=== PATIENT | female | born 1990 | race American Indian/Alaskan Native ===

== ENCOUNTER 2016-08-13 21:40 | Outpatient (CLI) | payer MEDICAID ==
[~2016-08-13] VITALS: Ht 160 cm; Wt 84.5 kg
[~2016-08-13 21:40] MED LIST: HYDR-3307 PO; PREN1TAB60 PO
[2016-08-13 22:08] VITALS: BP 122/66
== END 2016-08-13 22:10 | disposition home or self-care (01) ==
LOC: LDOP 21:40
PROVIDERS: ATTEND Student in an Organized Health Care Education/Training Program
DX: O26.893 Other specified pregnancy related conditions, third trimester (principal); R10.9 Unspecified abdominal pain; Z3A.38 38 weeks gestation of pregnancy
CPT/HCPCS: 59025; 99211; G0463

== ENCOUNTER 2016-08-18 20:39 | Outpatient (CLI) | payer MEDICAID ==
[2016-08-24] MEDS ORDERED: IBUP-1222 PO (10:25)
[2016-08-24] MEDS ORDERED: OXYC-302 PO (10:25)
[2016-08-24] MEDS ORDERED: DOCU-30 PO (10:26)
[2016-08-24] MEDS ORDERED: FERR324T13 PO (10:27)
== END 2016-08-18 22:20 | disposition home or self-care (01) ==
LOC: LDOP 20:39
PROVIDERS: ATTEND Obstetrics & Gynecology
DX: O26.893 Other specified pregnancy related conditions, third trimester (principal); R10.9 Unspecified abdominal pain; O62.9 Abnormality of forces of labor, unspecified; O99.283 Endocrine, nutritional and metabolic diseases complicating pregnancy, third trimester; E03.9 Hypothyroidism, unspecified; Z3A.39 39 weeks gestation of pregnancy
CPT/HCPCS: 59025; 99211; G0463

== ENCOUNTER 2016-08-21 01:56 | Outpatient (CLI) | payer MEDICAID ==
[~2016-08-21] VITALS: Ht 162.6 cm; Wt 75.9 kg
[2016-08-21 02:45] VITALS: BP 123/66
[2016-08-24] MEDS ORDERED: OXYC-302 PO (10:25)
[2016-08-24] MEDS ORDERED: IBUP-1222 PO (10:25)
[2016-08-24] MEDS ORDERED: DOCU-30 PO (10:26)
[2016-08-24] MEDS ORDERED: FERR324T13 PO (10:27)
== END 2016-08-21 02:45 | disposition home or self-care (01) ==
LOC: LDOP 01:56
PROVIDERS: ATTEND Obstetrics & Gynecology
DX: O09.93 Supervision of high risk pregnancy, unspecified, third trimester (principal); O42.92 Full-term premature rupture of membranes, unspecified as to length of time between rupture and onset of labor; O99.283 Endocrine, nutritional and metabolic diseases complicating pregnancy, third trimester; E03.9 Hypothyroidism, unspecified; Z3A.39 39 weeks gestation of pregnancy; Z87.891 Personal history of nicotine dependence
CPT/HCPCS: 59025; 89060; 99211; G0463; Q0114

== ENCOUNTER 2017-10-29 15:02 | Outpatient (CLI) | payer SELFPAY ==
[~2017-10-29 15:02] MED LIST changes: +DOCU-131 PO; +FERR324T13 PO; +IBUP-1222 PO; +OXYC-302 PO
[2017-10-29 16:08] LABS: MICROSCOPIC INDICATED
[2017-10-29 16:59] LABS: AMPHETAMINE SCREEN, URINE Negative (Negative); BARBITURATE SCREEN, URINE Negative (Negative); BENZODIAZEPINE SCREEN, URINE Negative (Negative); CANNABINOID SCREEN, URINE Negative (Negative); COCAINE SCREEN, URINE Negative (Negative); METHADONE SCREEN, URINE Negative (Negative); OPIATE SCREEN, URINE Negative (Negative)
[2017-10-29 17:18] LABS: BASOPHILS # (AUTO) 0.03 x10^3/uL (0-0.1); BASOPHILS % (AUTO) 0 % (0-1); EOSINOPHILS # (AUTO) 0.04 x10^3/uL (0-0.4); EOSINOPHILS % (AUTO) 1 % (1-7); LYMPHOCYTES # (AUTO) 1.78 x10^3/uL (1-3.4); LYMPHOCYTES % (AUTO) 20 % (22-44); MD NO; MEAN CORPUSCULAR HEMOGLOBIN 23.2 pg (27.0-34.8); MEAN CORPUSCULAR HGB CONC 31.5 g/dL (32.4-35.8); MEAN CORPUSCULAR VOLUME 73.7 fL (80-100); MEAN PLATELET VOLUME 7.7 fL (7.4-10.4); MONOCYTES # (AUTO) 0.33 x10^3/uL (0.2-0.8); MONOCYTES % (AUTO) 4 % (2-9); NEUTROPHILS # (AUTO) 6.64 x10^3/uL (1.8-6.8); NEUTROPHILS % (AUTO) 75 % (42-75); PLATELET COUNT 281 x10^3/uL (130-400); RED BLOOD COUNT 4.08 x10^6/uL (3.82-5.3); RED CELL DISTRIBUTION WIDTH 17.8 % (9.6-15.2)
[2017-10-29 17:31] LABS: ALANINE AMINOTRANSFERASE 13 U/L (12-78); ALBUMIN 2.5 g/dL (3.4-5.0); ANION GAP 8 mmol/L (5-15); CALCIUM 7.5 mg/dL (8.5-10.1); CHLORIDE 108 mmol/L (98-107); CREATININE 0.41 mg/dL (0.55-1.02)
[2017-10-29 17:33] LABS: ALKALINE PHOSPHATASE 141 U/L (45-117); BILIRUBIN,TOTAL 0.6 mg/dL (0.2-1.0); TOTAL PROTEIN 6.4 g/dL (6.4-8.2)
== END 2017-10-29 18:15 | disposition home or self-care (01) ==
LOC: LDOP 15:02
PROVIDERS: ATTEND Obstetrics & Gynecology
DX: O26.899 Other specified pregnancy related conditions, unspecified trimester (principal); R10.9 Unspecified abdominal pain; Z3A.00 Weeks of gestation of pregnancy not specified
CPT/HCPCS: 36415; 59025; 80053; 80307; 81001; 85025; 87086; 99211; G0463

== ENCOUNTER 2017-11-14 14:39 | Outpatient (CLI) | payer MEDICAID ==
[~2017-11-14] VITALS: Ht 160 cm; Wt 77.2 kg
[2017-11-14 14:46] VITALS: BP 106/58
== END 2017-11-14 15:20 | disposition home or self-care (01) ==
LOC: LDOP 14:39
PROVIDERS: ATTEND Obstetrics & Gynecology
DX: O26.893 Other specified pregnancy related conditions, third trimester (principal); R10.9 Unspecified abdominal pain; Z3A.38 38 weeks gestation of pregnancy
CPT/HCPCS: 59025; 99211; G0463

== ENCOUNTER 2017-11-20 19:33 | Outpatient (CLI) | payer MEDICAID ==
[~2017-11-20] VITALS: Ht 160 cm; Wt 83.6 kg
[2017-11-20 19:40] VITALS: BP 114/65
== END 2017-11-20 20:30 | disposition home or self-care (01) ==
LOC: LDOP 19:33
PROVIDERS: ATTEND Obstetrics & Gynecology
DX: O34.219 Maternal care for unspecified type scar from previous cesarean delivery (principal); O26.893 Other specified pregnancy related conditions, third trimester; R10.9 Unspecified abdominal pain; Z3A.39 39 weeks gestation of pregnancy
CPT/HCPCS: 59025; 99211; G0463

== ENCOUNTER 2017-11-28 11:41 | Inpatient (IN) | payer MEDICAID ==
[~2017-11-28] VITALS: Ht 160 cm; Wt 84.0 kg
[2017-11-28] MEDS ORDERED: D5%-LACTATED RINGERS 1,000 ML IV SCH (14:56)
[2017-11-28] MEDS ORDERED: OXYTOCIN 30U/ 0.9% NaCL 500ML 500 ML IV ONE (14:56)
[2017-11-28] MEDS ORDERED: OXYTOCIN 30U/ 0.9% NaCL 500ML 500 ML IV PRN (14:56)
[2017-11-28] MEDS ORDERED: FENTANYL PF 100 MCG/2ML IVPush PRN (15:00)
[2017-11-28] MEDS ORDERED: FENTANYL PF 100 MCG/2ML IV PRN (15:00)
[2017-11-28] MEDS ORDERED: ONDANSETRON 2MG/ML, 2ML IVPush PRN (15:00)
[2017-11-28] MEDS ORDERED: OXYTOCIN 30U/ 0.9% NaCL 500ML 500 ML ONE (15:15)
[2017-11-28] MEDS ORDERED: NEWBORN KIT ONE (15:15)
[2017-11-28 15:20] LABS: MEAN CORPUSCULAR HEMOGLOBIN 25.8 pg (27.0-34.8); MEAN CORPUSCULAR VOLUME 80.6 fL (80-100); MEAN PLATELET VOLUME 7.6 fL (7.4-10.4); PLATELET COUNT 304 x10^3/uL (130-400); RED BLOOD COUNT 4.57 x10^6/uL (3.82-5.3); RED CELL DISTRIBUTION WIDTH 31.6 % (9.6-15.2)
[2017-11-28] MEDS: LACTATED RINGERS 1,000 ML IV SCH ×3 (15:34→22:42)
[2017-11-28 15:37] LABS: BASOPHILS # (AUTO) 0.03 x10^3/uL (0-0.1); BASOPHILS % (AUTO) 0 % (0-1); EOSINOPHILS # (AUTO) 0.03 x10^3/uL (0-0.4); EOSINOPHILS % (AUTO) 0 % (1-7); LYMPHOCYTES # (AUTO) 1.49 x10^3/uL (1-3.4); LYMPHOCYTES % (AUTO) 20 % (22-44); MD MORPH REVIEW ONLY; MONOCYTES % (AUTO) 4 % (2-9); NEUTROPHILS # (AUTO) 5.73 x10^3/uL (1.8-6.8); NEUTROPHILS % (AUTO) 76 % (42-75)
[2017-11-28 15:38] LABS: <PLATELET ESTIMATE> ADEQUATE; <PLT MORPHOLOGY> NORMAL PLT MORPH; ANISOCYTOSIS 2+; OVALOCYTES 1+; POLYCHROMASIA 1+
[2017-11-28 15:40] VITALS: BP 105/59
[2017-11-28] MEDS ORDERED: FENTANYL PF 100 MCG/2ML ONE (20:40)
[2017-11-28] MEDS ORDERED: FENTANYL/BUPIV./NS/PF 250 ML EPIDCONT ONE (22:03)
[2017-11-28] MEDS ORDERED: BUPIVACAINE 0.25% ONE (22:03)
[2017-11-28] MEDS ORDERED: FENTANYL/BUPIV./NS/PF 250 ML EPIDCONT SCH (22:29)
[2017-11-28] MEDS ORDERED: LACTATED RINGERS 1,000 ML IVBOLUS PRN (22:30)
[2017-11-29] MEDS ORDERED: EPHEDRINE 50 MG/ML, 1ML ONE (02:02)
[2017-11-29] MEDS: EPHEDRINE 50 MG/ML, 1ML IVPush PRN ×2 (02:05→02:37)
[2017-11-29] MEDS: LACTATED RINGERS 1,000 ML IV SCH (02:20)
[2017-11-29] MEDS ORDERED: IBUPROFEN 600 MG TABLET ONE (05:50)
[2017-11-29] MEDS: IBUPROFEN 600 MG TABLET PO PRN ×3 (05:58→23:03)
[2017-11-29] MEDS ORDERED: DOCUSATE 100 MG CAPSULE PO PRN (06:00)
[2017-11-29] MEDS ORDERED: OXYTOCIN 30U/ 0.9% NaCL 500ML 500 ML ONE (06:00)
[2017-11-29] MEDS ORDERED: BISACODYL 10 MG SUPP PR PRN (06:00)
[2017-11-29] MEDS ORDERED: OXYcodone/APAP 5/325MG TABLET PO PRN ×2 (06:00)
[2017-11-29] MEDS ORDERED: METHYLERGONOVINE 0.2 MG/ML IM PRN (06:00)
[2017-11-29] MEDS ORDERED: GLYCERIN ADULT SUPP PR PRN (06:00)
[2017-11-29] MEDS ORDERED: IBUPROFEN 800 MG TABLET PO PRN (06:00)
[2017-11-29] MEDS ORDERED: MISOPROSTOL 200 MCG TABLET PR PRN (06:00)
[2017-11-29] MEDS ORDERED: ACETAMINOPHEN 325 MG TABLET PO PRN (06:00)
[2017-11-29] MEDS: OXYTOCIN 30U/ 0.9% NaCL 500ML 500 ML IV SCH ×2 (06:13→15:41)
[2017-11-29 08:45] VITALS: BP 94/57
[2017-11-29] MEDS: PRENATAL VIT/IRON/FA 1 EACH TABLET PO SCH (09:00)
[2017-11-29 12:00] VITALS: BP 98/60
[2017-11-29 13:36] LABS: MEAN CORPUSCULAR HEMOGLOBIN 25.7 pg (27.0-34.8); MEAN CORPUSCULAR HGB CONC 31.8 g/dL (32.4-35.8); MEAN CORPUSCULAR VOLUME 80.9 fL (80-100); MEAN PLATELET VOLUME 7.6 fL (7.4-10.4); PLATELET COUNT 248 x10^3/uL (130-400); RED CELL DISTRIBUTION WIDTH 31.8 % (9.6-15.2)
[2017-11-29 14:11] LABS: MD MORPH REVIEW ONLY
[2017-11-29 14:12] LABS: BASOPHILS # (AUTO) 0.08 x10^3/uL (0-0.1); BASOPHILS % (AUTO) 1 % (0-1); EOSINOPHILS # (AUTO) 0.03 x10^3/uL (0-0.4); EOSINOPHILS % (AUTO) 0 % (1-7); LYMPHOCYTES # (AUTO) 1.43 x10^3/uL (1-3.4); LYMPHOCYTES % (AUTO) 13 % (22-44); MONOCYTES # (AUTO) 0.31 x10^3/uL (0.2-0.8); MONOCYTES % (AUTO) 3 % (2-9); NEUTROPHILS # (AUTO) 8.77 x10^3/uL (1.8-6.8); NEUTROPHILS % (AUTO) 83 % (42-75)
[2017-11-29 14:17] LABS: POLYCHROMASIA 1+
[2017-11-29 14:19] LABS: ANISOCYTOSIS 2+
[2017-11-29 14:25] LABS: <PLATELET ESTIMATE> ADEQUATE; <PLT MORPHOLOGY> NORMAL PLT MORPH; OVALOCYTES 1+
[2017-11-29 16:35] VITALS: BP 96/60
[2017-11-29 20:00] VITALS: BP 96/57
[2017-11-30 00:10] VITALS: BP 92/57
[2017-11-30 04:00] VITALS: BP 95/56
[2017-11-30 07:30] VITALS: BP 93/59
[2017-11-30] MEDS: PRENATAL VIT/IRON/FA 1 EACH TABLET PO SCH (07:56)
[2017-11-30] MEDS: IBUPROFEN 600 MG TABLET PO PRN (07:57)
[2017-11-30] MEDS ORDERED: IBUP-1222 PO (08:56)
[2017-11-30] MEDS ORDERED: OXYC-302 PO (08:56)
== END 2017-11-30 11:57 | disposition home or self-care (01) | DRG 775 ==
LOC: LDOP 11:41 → LDIP 14:56 → 2NW 11-29 08:30
PROVIDERS: ADMIT Obstetrics & Gynecology; ATTEND Obstetrics & Gynecology
PROC: 10E0XZZ Delivery of Products of Conception, External Approach (ICD-10-PCS; principal; 2017-11-29)
PROC: 3E0R3BZ Introduction of Anesthetic Agent into Spinal Canal, Percutaneous Approach (ICD-10-PCS; 2017-11-29)
PROC: 00HU33Z Insertion of Infusion Device into Spinal Canal, Percutaneous Approach (ICD-10-PCS; 2017-11-29)
PROC: 0HQ9XZZ Repair Perineum Skin, External Approach (ICD-10-PCS; 2017-11-29)
DX: O62.0 Primary inadequate contractions (principal); O99.52 Diseases of the respiratory system complicating childbirth; D50.9 Iron deficiency anemia, unspecified; J45.909 Unspecified asthma, uncomplicated; Z37.0 Single live birth; Z3A.40 40 weeks gestation of pregnancy; Z80.3 Family history of malignant neoplasm of breast; Z82.3 Family history of stroke; Z83.3 Family history of diabetes mellitus; O71.82 Other specified trauma to perineum and vulva; O99.02 Anemia complicating childbirth
CPT/HCPCS: 36415; 76815; 85025; 86850; 86900; J3010; J2590; J7120

== ENCOUNTER 2018-04-16 11:32 | Day surgery (SDC) | payer MEDICAID ==
[~2018-04-16] VITALS: Ht 160 cm; Wt 73.5 kg
[2018-04-16] MEDS ORDERED: LACTATED RINGERS 1,000 ML IV SCH (12:11)
[2018-04-16 12:25] VITALS: BP 110/69
[2018-04-16] MEDS ORDERED: LIDOCAINE-MPF 1%, 2ML INFIL ONE (12:30)
[2018-04-16] MEDS ORDERED: ONDANSETRON ODT 8 MG PO ONE (12:30)
[2018-04-16] MEDS ORDERED: OXYcodone IR 5MG TABLET PO ONE (12:30)
[2018-04-16] MEDS ORDERED: GABAPENTIN 300 MG CAPSULE PO ONE (12:30)
[2018-04-16] MEDS ORDERED: SCOPOLAMINE PATCH, 1.5MG PATCH.TD72 TD ONE (12:30)
[2018-04-16] MEDS ORDERED: PROPOFOL 50 ML ONE (12:31)
[2018-04-16] MEDS ORDERED: FENTANYL PF 250 MCG/5ML ONE (12:31)
[2018-04-16] MEDS ORDERED: fluoxetine PO (12:40)
[2018-04-16] MEDS ORDERED: EPINEPHRINE 1 MG/ML, 1ML ONE (13:12)
[2018-04-16] MEDS ORDERED: BUPIVACAINE 0.25% ONE (13:12)
[2018-04-16] MEDS ORDERED: PRED5TAB PO (13:13)
[2018-04-16] MEDS ORDERED: DEXAMETHASONE 4 MG/ML, 1ML ONE (13:30)
[2018-04-16] MEDS ORDERED: KETOROLAC 30 MG/1 ML ONE (13:30)
[2018-04-16] MEDS ORDERED: GLYCOPYRROLATE 0.2MG/1ML, 5ML ONE (13:30)
[2018-04-16] MEDS ORDERED: CEFAZOLIN 1,000 MG ONE (13:30)
[2018-04-16] MEDS ORDERED: ROCURONIUM 10MG/ML,5ML ONE (13:30)
[2018-04-16] MEDS ORDERED: MIDAZOLAM 1 MG/ML, 2ML IV PRN (15:00)
[2018-04-16] MEDS ORDERED: DIPHENHYDRAMINE 50 MG/ML, 1ML IVPush PRN (15:00)
[2018-04-16] MEDS ORDERED: EPHEDRINE 50 MG/ML, 1ML IM PRN (15:00)
[2018-04-16] MEDS ORDERED: ACETAMINOPHEN 325 MG TABLET PO PRN (15:00)
[2018-04-16] MEDS ORDERED: PROMETHAZINE 25 MG SUPP PR PRN (15:00)
[2018-04-16] MEDS ORDERED: PROMETHAZINE 25 MG/ML, 1ML IV PRN (15:00)
[2018-04-16] MEDS ORDERED: FENTANYL PF 100 MCG/2ML IV PRN (15:00)
[2018-04-16] MEDS ORDERED: MEPERIDINE/PF 25MG/0.5ML IVPush PRN (15:00)
[2018-04-16] MEDS ORDERED: LABETALOL 5MG/ML, 20ML IV PRN (15:00)
[2018-04-16] MEDS ORDERED: MORPHINE SULFATE 4 MG/ML, 1ML IVPush PRN (15:00)
[2018-04-16] MEDS ORDERED: ONDANSETRON ODT 8 MG PO PRN (15:00)
[2018-04-16] MEDS ORDERED: OXYcodone 5 MG/5 ML ORAL.SOL UDC PO PRN (15:00)
[2018-04-16] MEDS ORDERED: EPHEDRINE 50 MG/ML, 1ML IVPush PRN (15:00)
[2018-04-16] MEDS ORDERED: PROMETHAZINE 12.5 MG SUPP PR PRN (15:00)
== END 2018-04-16 17:10 | disposition home or self-care (01) ==
LOC: OUT 11:32
PROVIDERS: ATTEND Obstetrics & Gynecology
DX: Z30.2 Encounter for sterilization (principal); J45.909 Unspecified asthma, uncomplicated; F19.90 Other psychoactive substance use, unspecified, uncomplicated; G43.909 Migraine, unspecified, not intractable, without status migrainosus; Z98.890 Other specified postprocedural states; Z79.899 Other long term (current) drug therapy
CPT/HCPCS: 36415; 58670; 81025; 82962; 86850; 86900; 88302; J0171; J0690; J1100; J1885; J2704; J3010; J3490; J7120; Q0162